=== PATIENT | female | born 1995 | race Caucasian/White ===

== ENCOUNTER 2025-03-01 17:39 | Outpatient (REF) | payer OTHER, MEDICAID, SELFPAY ==
--- OUTSIDE RECORDS SUMMARY | 2025-03-01 15:00 | XMS_ITS | Encounter Summary ---
Author Organization [employer] Address [address] [facility] [address] [place] [address] Care Team Providers Care Health Outreach Worker Name Role Phone Unavailable Primary Care Provider Unavailabl e Reason for Referral * Imaging (Urgent) - Authorized Specialty Diagnoses / Procedures Referred By Contac t Referred To Contact Radiology Diagnoses Generalized abdominal pain Procedures US Abdomen Complete Padmini Gonzalez DO [address] [place] [address] Phone: tel: fax: [address] Phone: tel: fax: Referral ID Status Reason Start Date Expiration Date V isits Requested Visits Authorized [id number] Authorized 03/01/2025 03/01/2026 1 1 * Consultation (Urgent) - Pending Review Specialty Diagnoses / Procedures Referred By Contac t Referred To Contact Obstetrics and Gynecology Diagnoses High risk human papillomavirus (HPV) DNA test positive Padmini Gonzalez DO [address] [place] [address] Phone: tel: fax: Referral ID Status Reason Start Date Expiration Date Visits Requested Visits Authorized [id number] Pending Review Specialty Services Required 03/01/2026 1 1 * Imaging (Routine) - Authorized Specialty Diagnoses / Procedures Referred By Contac t Referred To Contact Radiology Diagnoses Vaginal discharge Procedures US Pelvis Transvaginal Padmini Gonzalez DO [address] [place] [address] Phone: tel: fax: [address] Phone: tel: fax: Referral ID Status Reason Start Date Expiration Date V isits Requested Visits Authorized [id number] Authorized 03/01/2025 03/01/2026 1 1 * Imaging (Routine) - Authorized Specialty Diagnoses / Procedures Referred By Contac t Referred To Contact Radiology Diagnoses Vaginal discharge Procedures Us Pelvis complete Padmini Gonzalez DO [address] [place] [address] Phone: tel: fax: [address] Phone: tel: fax: Referral ID Status Reason Start Date Expiration Date V isits Requested Visits Authorized [id number] Authorized 03/01/2025 03/01/2026 1 1 Encounter Details Date Type Department Care Team (Latest Contact Info) Description 03/01/2025 3:00 PM EDT Office Visit [facility] [address] [place] [phone] Padmini Gonzalez DO [address] [place] [phone] Generalized abdominal pain (Primary Dx); Constipation, unspecified constipation type; Heartburn; Acute intractable headache, unspecified headache type; Dyspareunia, female; Vaginal discharge; Urinary frequency; High risk human papillomavirus (HPV) DNA test positive Social History Tobacco Use Types Packs/Day Years Used Date Smoking Tobacco: Never Passive Smoke Exposure: Never Smokeless Tobacco: Never Tobacco Cessation:Counseling Given: Not Answered Comments Unknown Sex and Gender Information Value Date Recorded Sex Assigned at Female 03/01/2025 2:47 PM EDT Legal Sex Female 2:40 PM EDT Gender Identity Female 03/01/2025 2:47 PM EDT Sexual Orientation Straight 03/01/2025 2: 47 PM EDT documented as of this encounter Last Filed Vital Signs Vital Sign Reading Time Taken Comments Blood Pressure 119/67 03/01/2025 3:15 PM EDT Pulse 74 03/01/2025 3:15 PM EDT Temperature 36.9 C (98.5 F) 03/01/2025 3:15 PM EDT Respiratory Rate 16 03/01/2025 3:15 PM EDT Oxygen Saturation 100% 03/01/2025 3:15 PM EDT Inhaled Oxygen Concentration - - Weight 56.9 kg (125 lb 8 oz) 03/01/2025 3:15 PM EDT Height 162.5 cm (5' 3.98 ) 03/01/2025 3:15 PM ED T Body Mass Index 21.56 03/01/2025 3:15 PM EDT documented in this encounter Progress Notes * Padmini Gonzalez, DO - 03/01/2025 3:00 PM EDT SUBJECTIVE Chantelle Newton is a 29 y.o. female who presents for New Pt [place] Visit. She has not had a PCP in 4 years since she moved to [place]. She presents to [place] today as a New Pt c/o abd pain and NIELSEN. She says that she feels bad. She has been having NIELSEN x 5 days. She has constant, L sided pounding, pressure-like pain. She denies any N/V or vision changes. She does have significant photophobia and noises bother her. She has tried OTC migraine meds with no improvement. She has never been dx'd with migraines. She also has diffuse abdominal pain which has been going on for longer than her headache . She denies any N/V or diarrhea. She does suffer from constipation and heartburn. She has not tried any OTC meds. She reports urinary frequency, dysuria, urgency for ~ 1 mos. She denies any hematuria. She reports white vaginal discharge and itching for ~ 1 mos as well. She denies any odor. No vaginal pain. She does experience dyspareunia. She denies any fevers, cough or URI symptoms. She was seen at [facility] a couple of weeks ago and had negative STI testing and pap with abnormal cells and positive HPV Aptima and was advised to have colposcopy but has not been scheduled yet. She denies any tobacco, alcohol or drug use. History provided by: Patient language interpreter used: No Review of Systems Constitutional: Negative for activity change, appetite change, chills, fever and unexpected weight change. HENT: Positive for postnasal drip. Eyes: Positive for photophobia. Respiratory: Negative for cough and shortness of breath. Cardiovascular: Negative for chest pain, palpitations and leg swelling. Gastrointestinal: Positive for abdominal pain, constipation and nausea. Negative for diarrhea and vomiting. Genitourinary: Positive for decreased urine volume, difficulty urinating, dyspareunia, dysuria, frequency, pelvic pain and vaginal discharge. Negative for hematuria. Neurological: Positive for headaches. Negative for weakness. Patient Active Problem List Diagnosis Chronic headaches Chronic constipation Chronic gastroesophageal reflux disease No Known Allergies OBJECTIVE Visit Vitals BP 119/67 (BP Location: Left arm, Patient Position: Sitting, BP Cuff Size: Adult) Pulse 74 Temp 98.5 ??F (36.9 ??C) (Oral) Resp 16 Ht 5' 3.98 (1.625 m) Wt 125 lb 8 oz (56.9 kg) LMP 02/07/2025 (Exact Date) SpO2 100% BMI 21.56 kg/m?? Smoking Status Never BSA 1.6 m?? Physical Exam Constitutional: General: She is not in acute distress. Appearance: Normal appearance. HENT: Right Ear: Tympanic membrane, ear canal and external ear normal. Left Ear: Tympanic membrane, ear canal and external ear normal. Mouth/Throat: Pharynx: Oropharynx is clear. Eyes: Extraocular Movements: Extraocular movements intact. Conjunctiva/sclera: Conjunctivae normal. Pupils: Pupils are equal, round, and reactive to light. Cardiovascular: Rate and Rhythm: Normal rate and regular rhythm. Heart sounds: Normal heart sounds. No murmur heard. Pulmonary: Effort: Pulmonary effort is normal. Breath sounds: Normal breath sounds. No wheezing or rhonchi. Abdominal: General: Bowel sounds are normal. Palpations: Abdomen is soft. Tenderness: There is abdominal tenderness in the right upper quadrant. There is no right CVA tenderness, left CVA tenderness, guarding or rebound. Musculoskeletal: Cervical back: Neck supple. No tenderness. Lymphadenopathy: Cervical: No cervical adenopathy. Neurological: General: No focal deficit present. Mental Status: She is alert and oriented to person, place, and time. Cranial Nerves: No cranial nerve deficit. Motor: No weakness. Gait: Gait normal. Psychiatric: Mood and Affect: Mood normal. Office Visit on 03/01/2025 Component Date Value Ref Range Status Influenza B 03/01/2025 Negative Negative, Indeterminate Final QC Media Lot # 03/01/2025 [id number] Final Lot# Expiration Date 03/01/2025 2,212,027 Final Rapid Strep A Screen 03/01/2025 Negative Negative, None Detected Final QC Media Lot # 03/01/2025 [id number] Final Lot# Expiration Date 03/01/2025 2,212,027 Final Influenza A 03/01/2025 Negative Negative, Indeterminate Final QC Media Lot # 03/01/2025 [id number] Final Lot# Expiration Date 03/01/2025 2,,027 Final Coronavirus Antigen PCR 03/01/2025 Negative Negative, Indeterminate, None Detected, Invalid, Specimen unsatisfactory for evaluation, Weakly Positive, 2+ Final QC Media Lot # 03/01/2025 [id number] Final Lot# Expiration Date 03/01/2025 10,282,026 Final Color, UA 03/01/2025 Light Yellow Final Clarity, UA 03/01/2025 Clear Final Glucose, UA 03/01/2025 Negative Final Bilirubin, UA 03/01/2025 Negative Final Ketones, UA 03/01/2025 Negative Final Spec Grav, UA 03/01/2025 1.020 Final Blood, UA 03/01/2025 Negative Negative, None Detected Final pH, UA 03/01/2025 7.0 Final Protein, UA 03/01/2025 Negative Final Urobilinogen, UA 03/01/2025 0.2 Final Leukocytes, UA 03/01/2025 Negative Negative, Rare, Trace Final Nitrite, UA 03/01/2025 Negative Negative, None Detected Final Appearance, UA 03/01/2025 clear Final QC Media Lot # 03/01/2025 [id number] Final Lot# Expiration Date 03/01/2025 6,302,026 Final Preg Test, Ur 03/01/2025 Negative Negative, Indeterminate, None Detected, Invalid, Specimen unsatisfactory for evaluation, Weakly Positive, 2+ Final QC Media Lot # 03/01/2025 [id number] Final Lot# Expiration Date 03/01/2025 1,312,027 Final Assessment/Plan Diagnoses and all orders for this visit: Generalized abdominal pain Constipation, unspecified constipation type Heartburn With RUQ tenderness on exam, likely multifactorial -provided reassurance -check basic labs -referred for abd [place] -encouraged increase fruits, vegetables, fiber, and water intake -start colace and fiber supplementation BID -trial miralax prn -start omeprazole daily -advised contact HHC if no improvement Acute intractable headache, unspecified headache type Persistent sx x 5 days, probable migraine -treated with toradol injection to break current NIELSEN -trial imitrex prn acute migraine -advised keep NIELSEN log and bring to new pt visit for review -advised rtc or go to ED if no improvement Dyspareunia, female -referred for pelvic US -sign record request for pap results -advised rtc if symptoms change or worsen Vaginal discharge Probable milan, recent testing negative -check BV panel and GC/CT -advised pt will treat pending results Urinary frequency With dysuria, probable UTI -treat empirically with bactrim -send Ucx for sensitivities -advised contact HHC if sx do not resolve High risk human papillomavirus (HPV) DNA test positive -sign record request for pap results as above -referred to TELEHEALTH NURSE EDUCATOR for colposcopy as recommended --Follow-up with new PCP as scheduled or sooner prn-- Current Outpatient Medications: docusate sodium (Colace) 100 MG capsule, Take 1 capsule (100 mg) by mouth 2 times daily., Disp: 180capsule, Rfl: 1 omeprazole OTC (PriLOSEC OTC) 20 MG EC tablet, Take 1 tablet (20 mg) by mouth before breakfast. Do not crush, chew, or split., Disp: 90 tablet, Rfl: 1 polycarbophil (Fibercon) 625 MG tablet, Take 1 tablet (625 mg) by mouth 2 times daily., Disp: 180 tablet, Rfl: 1 polyethylene glycol, PEG, 3350 (MiraLax) 17 GM/SCOOP powder, Take 17 g by mouth if needed each day (constipation) for up to 3 days., Disp: 527 g, Rfl: 2 sulfamethoxazole-trimethoprim (Bactrim DS) 800-160 MG tablet, Take 1 tablet by mouth 2 times daily for 3 days., Disp: 6 tablet, Rfl: 0 SUMAtriptan (Imitrex) 25 MG tablet, Take 1 tablet (25 mg) by mouth 1 (one) time if needed for migraine for up to 1 dose. May repeat dose once in 2 hours if no relief. Do not exceed 2 doses in 24 hours., Disp: 9 tablet, Rfl: 1 No current facility-administered medications for this visit. Scribe Attestation: Javier Manning, am serving as a scribe to document services personally performed by Padmini Temple, based on the patient's response to questions by provider and provider's statements to me. 03/01/25 4:45 PM Physicians Attestation: Padmini Manning DO, have reviewed the information by the scribe, Javier Toledo, for accuracy and agree with its content. documented in this encounter Plan of Treatment Scheduled Orders Name Type Priority Associated Diagnoses Orde r Schedule T4, Free Lab Routine Generalized abdominal pain Acute intractable headache, unspecified headache type Vaginal discharge Expected: 03/01/2025 (Approximate), Expires: 03/01/2026 Lipid Panel, Standard Lab Routine Generalized abdominal pain Acute intractable headache, unspecified headache type Vaginal discharge Expected: 03/01/2025 (Approximate), Expires: 03/01/2026 TSH Lab Routine Generalized abdominal pain Acute intractable headache, unspecified headache type Vaginal discharge Expected: 03/01/2025 (Approximate), Expires: 03/01/2026 Vitamin D, 25-Hydroxy, Total, Immunoassay Lab Routine Generalized abdominal pain Acute intractable headache, unspecified headache type Vaginal discharge Expected: 03/01/2025 (Approximate), Expires: 03/01/2026 Hepatic Function Panel Lab Routine Generalized abdominal pain Acute intractable headache, unspecified headache type Vaginal discharge Expected: 03/01/2025 (Approximate), Expires: 03/01/2026 Hemoglobin A1c Lab Routine Generalized abdominal pain Acute intractable headache, unspecified headache type Vaginal discharge Expected: 03/01/2025 (Approximate), Expires: 03/01/2026 CBC Lab Routine Generalized abdominal pain Acute intractable headache, unspecified headache type Vaginal discharge Expected: 03/01/2025, Expires: 03/01/2026 Basic Metabolic Panel Lab Routine Generalized abdominal pain Acute intractable headache, unspecified headache type Vaginal discharge Expected: 03/01/2025 (Approximate), Expires: 03/01/2026 Hepatitis B surface antigen, EIA Lab Routine Generalized abdominal pain Acute intractable headache, unspecified headache type Vaginal discharge Expected: 03/01/2025 (Approximate), Expires: 03/01/2026 Chlamydia/N. Gonorrhoeae RNA, TMA, Urogenitial Microbiology Routine Generalized abdominal pain Acute intractable headache, unspecified headache type Vaginal discharge Ordered: 03/01/2025 HIV-1/2 Antigen and Antibodies, Fourth Generation, with Reflexes Lab Routine Generalized abdominal pain Acute intractable headache, unspecified headache type Vaginal discharge Expected: 03/01/2025 (Approximate), Expires: 03/01/2026 Hepatitis C Antibody with Reflex to HCV, RNA, Quantitative, Real-Time PCR Lab Routine Generalized abdominal pain Acute intractable headache, unspecified headache type Vaginal discharge Expected: 03/01/2025, Expires: 03/01/2026 RPR (Monitor) with Reflex to Titer Lab Routine Generalized abdominal pain Acute intractable headache, unspecified headache type Vaginal discharge Expected: 03/01/2025, Expires: 03/01/2026 Hepatitis B Surface Antibody, Qualitative Lab Routine Generalized abdominal pain Acute intractable headache, unspecified headache type Vaginal discharge Expected: 03/01/2025 (Approximate), Expires: 03/01/2026 Hepatitis A Antibody, Total Lab Routine Generalized abdominal pain Acute intractable headache, unspecified headache type Vaginal discharge Expected: 03/01/2025 (Approximate), Expires: 03/01/2026 Hepatitis B Core Antibody, Total Lab Routine Generalized abdominal pain Acute intractable headache, unspecified headache type Vaginal discharge Expected: 03/01/2025 (Approximate), Expires: 03/01/2026 T-SPOT .TB Lab Routine Generalized abdominal pain Acute intractable headache, unspecified headache type Vaginal discharge Expected: 03/01/2025 (Approximate), Expires: 03/01/2026 Us Pelvis complete Imaging Routine Vaginal discharge Expected: 03/01/2025, Expires: 03/01/2026 US Pelvis Transvaginal Imaging Routine Vaginal discharge Expected: 03/01/2025, Expires: 03/01/2026 Bacterial Vaginosis Microbiology Routine Vaginal discharge Ordered: 03/01/2025 Chlamydia/N. Gonorrhoeae RNA, TMA, Vaginal Microbiology Routine Vaginal discharge Ordered: 03/01/2025 US Abdomen Complete Imaging Urgent Generalized abdominal pain Expected: 03/01/2025, Expires: 03/01/2026 Amylase Lab Routine Generalized abdominal pain Expected: 03/01/2025 (Approximate), Expires: 03/01/2026 Lipase Lab Routine Generalized abdominal pain Expected: 03/01/2025, Expires: 03/01/2026 Culture, Urine, Routine Microbiology Routine Urinary frequency Ordered: 03/01/2025 Scheduled Referrals Name Type Priority Associated Diagnoses Orde r Schedule Referral to Obstetrics / Gynecology Outpatient Referral Urgent High risk human papillomavirus (HPV) DNA test positive Expected: 03/01/2025 (Approximate), Expires: 03/01/2026 documented as of this encounter Procedures Procedure Name Priority Date/Time Associated Diagnosis Comments POCT URINALYSIS DIPSTICK Routine 03/01/2025 4:13 PM EDT Generalized abdominal pain POCT , URINE Routine 03/01/2025 4:12 PM EDT Generalized abdominal pain POCT COVID-19 AG RENO ID NOW Routine 03/01/2025 3:30 PM EDT Generalized abdominal pain POCT INFLUENZA B (ID NOW RAPID MOLECULAR) Routine 03/01/2025 3:29 PM EDT Generalized abdominal pain POCT INFLUENZA A (ID NOW RAPID MOLECULAR) Routine 03/01/2025 3:29 PM EDT Generalized abdominal pain POC RENO ID NOW STREP A Routine 03/01/2025 3:26 PM EDT Generalized abdominal pain documented in this encounter Results * POCT Urinalysis (03/01/2025 4:13 PM EDT) Color, UA Light Yellow Clarity, UA Clear Glucose, UA Negative Bilirubin, UA Negative Ketones, UA Negative Spec Grav, UA 1.020 Blood, UA Negative Negative, None Detected pH, UA 7.0 Protein, UA Negative Urobilinogen, UA 0.2 Leukocytes, UA Negative Negative, Rare, Trace Nitrite, UA Negative Negative, None Detected Appearance, UA clear QC Media Lot # [id number] Lot# Expiration Date ,026 Urine (Urine, Random) 03/01/2025 4:13 PM EDT [employer] DO POINT OF CARE TEST ENTER/QUAN T ORDERABLES Final Result * POCT Urine (03/01/2025 4:12 PM EDT) Pathologist [facility] Preg Test, Ur Negative Negative, Indeterminate, None Detected, Invalid, Specimen unsatisfactory for evaluation, Weakly Positive, 2+ QC Media Lot # [id number] Lot# Expiration Date Urine 03/01/2025 4:12 PM EDT [facility] POINT OF CARE TEST ENTER/QUAN T ORDERABLES Final Result * POCT Rapid Covid-19 RENO ID NOW (03/01/2025 3:30 PM EDT) Pathologist [facility] Coronavirus Antigen PCR Negative Negative, Indeterminate, None Detected, Invalid, Specimen unsatisfactory for evaluation, Weakly Positive, 2+ QC Media Lot # [id number] Lot# Expiration Date , Swab 03/01/2025 3:30 PM EDT [employer] POINT OF CARE TEST ENTER/QUAN T ORDERABLES Final Result * POCT Rapid Influenza A RENO ID NOW (03/01/2025 3:29 PM EDT) Pathologist [facility] Influenza A Negative Negative, Indeterminate [facility] QC Media Lot # [id number] [facility] Lot# Expiration Date [facility] Swab 03/01/2025 3:29 PM EDT Padmini Barbosayoan DO POINT OF CARE TEST ENTER/QUAN T ORDERABLES Final Result Performing Organization Address [facility] Co de Phone Number [facility] [address] [place] [phone] * POCT Rapid Influenza B RENO ID NOW (03/01/2025 3:29 PM EDT) Pathologist [facility] Influenza B Negative Negative, Indeterminate [facility] QC Media Lot # [id number] [facility] Lot# Expiration Date [facility] Swab 03/01/2025 3:29 PM EDT Padmini Gonzalez POINT OF CARE TEST ENTER/QUAN T ORDERABLES Final Result Performing Organization Address [facility] de Phone Number [facility] [address] [place] [phone] * POCT Rapid Strep A RENO ID NOW (03/01/2025 3:26 PM EDT) [facility] Rapid Strep A Screen Negative Negative, None Detected QC Media Lot # [id number] Lot# Expiration Date Swab 03/01/2025 3:26 PM EDT Padmini Barbosazachlindsay POINT OF CARE TEST ENTER/QUAN T ORDERABLES Final Result documented in this encounter Visit Diagnoses Diagnosis Generalized abdominal pain- Primary Abdominal pain, generalized Constipation, unspecified constipation type Heartburn Acute intractable headache, unspecified headache type Dyspareunia, female Vaginal discharge Leukorrhea, not specified as infective Urinary frequency High risk human papillomavirus (HPV) DNA test positive documented in this encounter Administered Medications Inactive Administered Medications - up to 3 most recent administrations Medication Order MAR Action Action Date Dose Rate Site ketorolac (Toradol) injection 30 mg 30 mg, Intramuscular, Once, On Kita 03/01/25 at 1600, For 1 doseIndications:Acute intractable headache, unspecified headache type Given 03/01/2025 4:00 PM EDT 30 mg Right Deltoid documented in this encounter
--- OUTSIDE RECORDS SUMMARY | 2025-03-01 19:40 | XMS_ITS | Clinical Summary ---
Author Organization [employer] Address [address] [place] [address] [address] [place] [address] Care Team Providers Care Family Consumer Science Teacher Name Role Phone Unavailable Primary Care Provider Unavailabl e Allergies No known active allergies Medications sulfamethoxazol e-trimethoprim (Bactrim DS) 800-160 MG tablet Take 1 tablet by mouth 2 times daily for 3 days. 6 tablet 03/01/2025 03/04/20 Active docusate sodium (Colace) 100 MG capsule Take 1 capsule (100 mg) by mouth 2 times daily. 180 capsule 1 03/01/2025 03/01/20 Active polycarbophil (Fibercon) 625 MG tablet Take 1 tablet (625 mg) by mouth 2 times daily. 180 tablet 1 03/01/2025 03/01/20 Active polyethylene glycol, PEG, 3350 (MiraLax) 17 GM/SCOOP powder Take 17 g by mouth if needed each day (constipation ) for up to 3 days. 527 g 2 03/01/2025 03/04/20 Active omeprazole OTC (PriLOSEC OTC) 20 MG EC tablet Take 1 tablet (20 mg) by mouth before breakfast. Do not crush, chew, or split. 90 tablet 1 03/01/2025 03/01/20 26 Active SUMAtriptan (Imitrex) 25 MG tablet Take 1 tablet (25 mg) by mouth 1 (one) time if needed for migraine for up to 1 dose. May repeat dose once in 2 hours if no relief. Do not exceed 2 doses in 24 hours. 9 tablet 1 03/01/2025 Active Hospital, Clinic, or Other Facility Administered Medication Ordered Dose Route Frequency Start Date End Date Status ketorolac (Toradol) injection 30 mgIndications:Acute intractable headache, unspecified headache type 30 mg IM Once 03/01/2025 03/01/2025 Ended Active Problems Problem Noted Date Diagnosed Date Chronic headaches 03/01/2025 Chronic constipation 03/01/2025 Chronic gastroesophageal reflux disease 03/01/20 25 Encounters Date Type Department Care Team Description 03/01/2025 3:00 PM EDT Office Visit [facility] [address] [address] Padmini Gonzalez DO Generalized abdominal pain (Primary Dx); Constipation, unspecified constipation type; Heartburn; Acute intractable headache, unspecified headache type; Dyspareunia, female; Vaginal discharge; Urinary frequency; High risk human papillomavirus (HPV) DNA test positive 03/01/2025 Travel from Last 3 Months Social History Tobacco Use Types Packs/Day Years Used Date Smoking Tobacco: Never Passive Smoke Exposure: Never Smokeless Tobacco: Never Tobacco Cessation:Counseling Given: Not Answered Comments Unknown Sex and Gender Information Value Date Recorded Sex Assigned at Female 03/01/2025 2:47 PM EDT Legal Sex Female 2:40 PM EDT Gender Identity Female 03/01/2025 2:47 PM EDT Sexual Orientation Straight 03/01/2025 2: 47 PM EDT Last Filed Vital Signs Vital Sign Reading [...] Mass Index 21.56 03/01/2025 3:15 PM EDT Plan of Treatment Health Maintenance Due Date Last Done Comments Depression Screening 1993 HIV Screening 1993 SDOH Screening 1993 Disability Screening 1993 Alcohol/Substance Use Screening 2005 Family Planning (PISQ) 2008 HPV Vaccines (1 - 3-dose series) 2008 Hepatitis C Screening 11/02/2011 DTaP/Tdap/Td Vaccines (1 - Tdap) 2012 Hepatitis B Vaccines (1 of 3 - 19+ 3-dose series) 2012 Pap Smear 2014 Cervical Cancer Screening 11/02/2023 HPV/Cotest 11/02/2023 COVID-19 Vaccine (1 - 2023-2 5 season) 2025 Influenza Vaccine (#1) 2025 Tobacco Screening 03/01/2026 03/01/2025 Zoster Vaccines (1 of 2) 11/02/2043 RSV Patients and Pa tients Aged 60 years or older (1 - 1-dose 75+ series) 2068 HIB Vaccines Aged Out No longer eligi ble based on patient's age to complete this topic Hepatitis A Vaccines Aged Out No long er eligible based on patient's age to complete this topic IPV Vaccines Aged Out No longer eligi ble based on patient's age to complete this topic Meningococcal B Vaccine Aged Out No l onger eligible based on patient's age to complete this topic Meningococcal Vaccine Aged Out No romina walt eligible based on patient's age to complete this topic Pneumococcal Vaccine: Pediat rics (0 to 5 Years) and At-Risk Patients (6 to 49) Years Aged Out No longer eligi ble based on patient's age to complete this topic RSV under 20 months Aged Out No longe r eligible based on patient's age to complete this topic Rotavirus Vaccines Aged Out No longer eligible based on patient's age to complete this topic Procedures Procedure Name Priority Date/Time Associated Diagnosis [...] 03/01/2025 3:26 PM EDT Generalized abdominal pain from Last 3 Months Results * POCT Urinalysis (03/01/2025 4:13 PM [...] Media Lot # [id number] Lot# Expiration Date 302,026 Urine (Urine, Random) 03/01/2025 4:13 PM EDT [facility] POINT OF CARE TEST ENTER/QUAN T ORDERABLES Final Result * POCT Urine (03/01/2025 4:12 PM EDT) Preg Test, Ur Negative Negative, Indeterminate, None Detected, Invalid, Specimen unsatisfactory for evaluation, Weakly Positive, 2+ QC Media Lot # [id number] Lot# Expiration Date ,312,027 Urine 03/01/2025 4:12 PM EDT Padmini GeoVarioyoan DO POINT OF CARE TEST ENTER/QUAN T ORDERABLES Final Result * POCT Rapid Covid-19 R[place] ID NOW (03/01/2025 3:30 PM EDT) Coronavirus Antigen PCR Negative Negative, Indeterminate, None Detected, Invalid, Specimen unsatisfactory for evaluation, Weakly Positive, 2+ QC Media Lot # [id number] Lot# Expiration Date ,026 Swab 03/01/2025 3:30 PM EDT Padmini Gonzalez DO POINT OF CARE TEST ENTER/QAUN T ORDERABLES Final Result * POCT Rapid Influenza B RENO ID NOW (03/01/2025 3:29 PM EDT) Influenza B Negative Negative, Indeterminate [facility] QC Media Lot # [id number] [facility] Lot# Expiration Date [facility] Swab 03/01/2025 3:29 PM EDT Padmini Gonzalez DO POINT OF CARE TEST ENTER/QUAN T ORDERABLES Final Result Performing Organization Address [facility] Co de Phone Number [facility] [address] [place] [phone] * POCT Rapid Influenza A RENO ID NOW (03/01/2025 3:29 PM EDT) Influenza A Negative Negative, Indeterminate [facility] QC Media Lot # [id number] [facility] Lot# Expiration Date [facility] Swab 03/01/2025 3:29 PM EDT Padmini Gonzalez DO POINT OF CARE TEST ENTER/QUAN T ORDERABLES Final Result Performing Organization Address [facility]/ZIP Co de Phone Number [facility] [address] [place] [phone] * POCT Rapid Strep A R[place] ID NOW (03/01/2025 3:26 PM EDT) Pathologist [facility] Rapid Strep A Screen Negative Negative, None Detected QC Media Lot # [id number] Lot# Expiration Date Swab 03/01/2025 3:26 PM EDT Padmini Gonzalez DO POINT OF CARE TEST ENTER/QUAN T ORDERABLES Final Result from Last 3 Months Insurance [facility] LIMITED HSN FULL
--- OUTSIDE RECORDS SUMMARY | 2025-03-01 19:40 | XMS_ITS | Encounter Summary ---
Author Organization [employer] Address [address] [place] [address] [address] [place] [address] Care Team Providers Care Biometric Technician Name Role Phone Unavailable Primary Care Provider Unavailabl e Encounter Details Date Type Department Care Team (Latest Contact Info) Description 03/01/2025 Travel Social History Tobacco Use Types Packs/Day Years Used Date Smoking Tobacco: Never Passive Smoke Exposure: Never Smokeless Tobacco: Never Comments Unknown Sex and Gender Information Value Date Recorded Sex Assigned at Female 03/01/2025 2:47 PM EDT Legal Sex Female 2:40 PM EDT Gender Identity Female 03/01/2025 2:47 PM EDT Sexual Orientation Straight 03/01/2025 2: 47 PM EDT documented as of this encounter Plan of Treatment Not on file documented as of this encounter Visit Diagnoses Not on filedocumented in this encounter
[2025-03-02 05:45] LABS: Bacterial Vaginosis PCR NEGATIVE (Negative); Candida Group PCR NOT DETECTED (Not Detect); Candida glab krusei PCR NOT DETECTED (Not Detect); Trichomonas vaginalis PCR NOT DETECTED (Not Detect)
[2025-03-02 06:16] LABS: CT PCR NOT DETECTED (Not Detect.); NG PCR NOT DETECTED (Not Detect.)
== END 2025-03-01 17:40 | disposition home or self-care (01) ==
LOC: HO.HHCLNP 17:39
PROVIDERS: Visit Provider Family Medicine
DX: N89.8 Other specified noninflammatory disorders of vagina (principal); R35.0 Frequency of micturition; Z20.2 Contact with and (suspected) exposure to infections with a predominantly sexual mode of transmission
CPT/HCPCS: 81515; 87086; 87491; 87591

== ENCOUNTER 2025-04-26 15:48 | Outpatient (REF) | payer MEDICAID, OTHER, SELFPAY ==
--- NOTE | ~2025-04-26 | US_ITS ---
EXAMINATION: US PELVIS TRANSABDOMINAL AND TRANSVAGINAL HISTORY: painful intercourse COMPARISON: There are no prior studies available for comparison. TECHNIQUE: Transabdominal and endovaginal real-time 2D person-scale ultrasound was performed. FINDINGS: LMP:Unknown Uterus: The uterus is retroverted, measuring 7.4 x 3.7 x 5.3 cm. Myometrium has a normal echotexture. No focal uterine lesions. Endometrium: The endometrial stripe measures 9 mm in thickness. Right ovary: The right ovary measures 3 x 2.7 x 2 cm. Volume 8.4 mL The right ovary is normal in size and echotexture. Normal vascular flow. Small nonspecific free fluid adjacent to the right ovary. Left ovary: The left ovary is not visualized. Pelvic fluid: Small amount of free fluid There is prominence of the vasculature in the adnexal region, question pelvic congestion. US/US pelvic and transvaginal IMPRESSION: 1. The left ovary is not visualized. 2. Right ovary appears unremarkable. Nonspecific small free fluid adjacent to the ovary. 3. Prominence of the pelvic vasculature, question pelvic congestion. Electronically signed by: Kvng Joseph MD 04/26/2025 04:59 PM [facility]
--- OUTSIDE RECORDS SUMMARY | 2025-04-26 19:33 | XMS_ITS | Clinical Summary ---
Author Organization [employer] Address [address] [facility] [address] [place] [address] Care Team Providers Care Interventional Tech Name Role Phone Padmini Gonzalez DO Primary Care Provider + [phone] Allergies No known active allergies Medications docusate sodium (Colace) 100 MG capsule Take 1 capsule (100 mg) by mouth 2 times daily. 180 capsule 1 03/01/2025 03/01/20 Active polycarbophil (Fibercon) 625 MG tablet Take 1 tablet (625 mg) by mouth 2 times daily. 180 tablet 1 03/01/2025 03/01/20 Active omeprazole OTC (PriLOSEC OTC) 20 MG EC tablet Take 1 tablet (20 mg) by mouth before breakfast. Do not crush, chew, or split. 90 tablet 1 03/01/2025 03/01/20 Active SUMAtriptan (Imitrex) 25 MG tablet Take 1 tablet (25 mg) by mouth 1 (one) time if needed for migraine for up to 1 dose. May repeat dose once in 2 hours if no relief. Do not exceed 2 doses in 24 hours. 9 tablet 1 03/01/2025 Active Active Problems Problem Noted Date Diagnosed Date Chronic headaches 03/01/2025 Chronic constipation 03/01/2025 Chronic gastroesophageal reflux disease 03/01/20 Encounters Date Type Department Care Team Description 03/01/2025 3:00 PM EDT Office Visit [facility] [address] [place] [phone] Padmini Gonzalez DO Generalized abdominal pain (Primary [...] 11/02/2023 HPV/Cotest 11/02/2023 COVID-19 Vaccine (1 - 2024-2 6 season) 2025 Influenza Vaccine (#1) 2025 Tobacco [...] Procedure Name Priority Date/Time Associated Diagnosis Comments US PELVIS TRANSVAGINAL Routine 04/26/2025 3:54 PM EST Vaginal discharge POCT URINALYSIS DIPSTICK Routine 03/01/2025 4:13 PM EDT Generalized abdominal pain POCT , URINE Routine 03/01/2025 4:12 PM EDT Generalized abdominal pain CULTURE, URINE, ROUTINE Routine 03/01/2025 4:05 PM EDT Urinary frequency BACTERIAL VAGINOSIS PANEL Routine 03/01/2025 4:05 PM EDT Vaginal discharge CHLAMYDIA/N. GONORRHOEAE RNA, TMA, UROGENITAL Routine 03/01/2025 3:55 PM EDT Vaginal discharge POCT COVID-19 AG RENO ID NOW Routine [...] pain from Last 3 Months Results * US Pelvis Transvaginal (04/26/2025 3:54 PM EST) Anatomical Region Laterality Modality Pelvis Ultrasound 04/26/2025 3:54 PM EST Narrative 04/26/2025 5:02 PM EST [facility] [address] [place] [address] [place] [address] Ultrasound Report Signed Patient: Chantelle Lovelace MR#: [id number] : 1995 Acct:[id number] Age/Sex: 29 / F ADM Date: 04/26/25 Loc: HO.HMGCX Attending Dr: Padmini Gonzalez DO Ordering Physician: Padmini Gonzalez DO Date of Service: 04/26/25 Procedure(s): US pelvic and transvaginal Accession Number(s): [id number] cc: [facility]; Padmini Gonzalez DO Reason for Exam: painful intercourse EXAMINATION: US PELVIS TRANSABDOMINAL AND TRANSVAGINAL HISTORY: painful intercourse COMPARISON: There are no prior studies available for comparison. TECHNIQUE: Transabdominal and endovaginal real-time 2D person-scale ultrasound was performed. FINDINGS: LMP:Unknown Uterus: The uterus is retroverted, measuring 7.4 x 3.7 x 5.3 cm. Myometrium has a normal echotexture. No focal uterine lesions. Endometrium: The endometrial stripe measures 9 mm in thickness. Right ovary: The right ovary measures 3 x 2.7 x 2 cm. Volume 8.4 mL The right ovary is normal in size and echotexture. Normal vascular flow. Small nonspecific free fluid adjacent to the right ovary. Left ovary: The left ovary is not visualized. Pelvic fluid: Small amount of free fluid There is prominence of the vasculature in the adnexal region, question pelvic congestion. US/US pelvic and transvaginal IMPRESSION: 1. The left ovary is not visualized. 2. Right ovary appears unremarkable. Nonspecific small free fluid adjacent to the ovary. 3. Prominence of the pelvic vasculature, question pelvic congestion. Electronically signed by: Kvng Joseph MD 04/26/2025 04:59 PM EST Dictated By: Kvng Joseph MD Signed By: <Electronically signed by Kvng Joseph MD in OV> 04/26/25 1659 DD/ 1554 TD/TT: 04/26/25 1612 Telephone Operator: VASHTI Procedure Note Donotuseinterpreter, Image - 04/26/2025 [facility] Adult Primary Care [facility] [place] [address] Ultrasound Report Signed Patient: Shwetha Lovelace#: [id number] : 1995Acct:[id number] Age/Sex: M Date: 04/26/25 Loc: HO.HMGCX Attending Dr: Padmini Gonzalez DO Ordering Physician: Padmini Gonzalez DO Date of Service: 04/26/25 Procedure(s): US pelvic and transvaginal Accession Number(s): [id number] cc: [facility]; Padmini Gonzalez DO Reason for Exam: painful intercourse EXAMINATION: US PELVIS TRANSABDOMINAL AND TRANSVAGINAL HISTORY: painful intercourse COMPARISON: There are no prior studies available for comparison. TECHNIQUE: Transabdominal and endovaginal real-time 2D person-scale ultrasound was performed. FINDINGS: LMP:Unknown Uterus: The uterus is retroverted, measuring 7.4 x 3.7 x 5.3 cm. Myometrium has a normal echotexture. No focal uterine lesions. Endometrium: The endometrial stripe measures 9 mm in thickness. Right ovary: The right ovary measures 3 x 2.7 x 2 cm. Volume 8.4 mL The right ovary is normal in size and echotexture. Normal vascular flow. Small nonspecific free fluid adjacent to the right ovary. Left ovary: The left ovary is not visualized. Pelvic fluid: Small amount of free fluid There is prominence of the vasculature in the adnexal region, question pelvic congestion. US/US pelvic and transvaginal IMPRESSION: 1. The left ovary is not visualized. 2. Right ovary appears unremarkable. Nonspecific small free fluid adjacent to the ovary. 3. Prominence of the pelvic vasculature, question pelvic congestion. Electronically signed by: Kvng Joseph MD 04/26/2025 04:59 PM [facility] Dictated By: Kvng Joseph MD Signed By: <Electronically signed by Kvng Joseph MD in OV> 04/26/25 1659 DD/ 1554 TD/TT: 04/26/25 1612 Telephone Operator: VASHTI Padmini Gonzalez DO IMG US PROCEDURES Final Resu lt * POCT Urinalysis (03/01/2025 4:13 PM EDT) [...] Media Lot # [id number] Lot# Expiration Date 6,026 Urine (Urine, Random) 03/01/2025 4:13 PM EDT Padmini Gonzalez DO POINT OF CARE TEST ENTER/QUAN T ORDERABLES Final Result * POCT Urine (03/01/2025 4:12 PM EDT) Preg Test, Ur Negative Negative, Indeterminate, None Detected, Invalid, Specimen unsatisfactory for evaluation, Weakly Positive, 2+ QC Media Lot # [id number] Lot# Expiration Date 1,[id number] Urine 03/01/2025 4:12 PM EDT Padmini Gonzalez DO POINT OF CARE TEST ENTER/QUAN T ORDERABLES Final Result * Bacterial Vaginosis (03/01/2025 4:05 PM EDT) TRICHOMONAS VAGINALIS DETECTION BY PCR NOT DETECTED Not Detect [facility] BACTERIAL VAGINOSIS DETECTION BY PCR NEGATIVE Negative [facility] Comment:The BV organism targ ets of the Xpert Xpress MVP test can becommensal in women; Xpert Xpress MVP positive results forbacterial vaginosis should be considered in conjunction withother clinical and patient information to determine thedisease status. Organisms that are not detected by the XpertXpress MVP test have also been reported to be associatedwith BV and aerobic vaginitis.The Xpert Xpress MVP test performance has not been evaluatedin patients under the age of 14. MERY GROUP DETECTION BY PCR NOT DETECTED Not Detect [facility] Mery glab krusei PCR NOT DETECTED Not Detect [facility] Swab Vaginal structure / Unknown 03/01/2025 4:05 PM EDT 03/01/2025 6:01 PM EDT Padmini Gonzalez DO LAB MICROBIOLOGY - GENERAL O RDERABLES Final Result [facility] [address] [place] [phone] * Culture, Urine, Routine (03/01/2025 4:05 PM EDT) Urine Urine specimen obtained by clean catch procedure / Unknown 03/01/2025 4:05 PM EDT 03/01/2025 6:01 PM EDT Comment:[facility] Narrative [facility] - 03/03/2025 1:20 PM EDT Lactobacillus species Quant 50,000 to 100,000 cfu/mL Susc N/A Susceptibility not routinely performed on this isolate. Specimen Source: Urine clean catch Padmini Gonzalez DO LAB MICROBIOLOGY - GENERAL O RDERABLES Final Result [facility] [address] [place] [phone] * Chlamydia/N. Gonorrhoeae RNA, TMA, Vaginal (03/01/2025 3:55 PM EDT) CT PCR NOT DETECTED Not Detect. [facility] Comment:A not detected test result does not exclude the possibilityof infection because test results can be affected byimproper specimen collection, concurrent antibiotic therapy,or the number of organisms in the specimen which may bebelow the sensitivity of the test. As with many diagnostictests, results from the Xpert CT/NG assay should beinterpreted in conjunction with other laboratory andclinical data available to the clinician.Xpert CT/NG performance has not been evaluated in patientsless than 14 years of age. The assay should not be used forthe evaluationof suspected sexual abuse or for other medico-legalindications. Additional testing is recommended in anycircumstance when false positive or false negative resultscould lead to adverse medical, social or psychologicalconsequences. NG PCR NOT DETECTED Not Detect. [facility] Comment:A not detected test result does not exclude the possibilityof infection because test results can be affected byimproper specimen collection, concurrent antibiotic therapy,or the number of organisms in the specimen which may bebelow the sensitivity of the test. As with many diagnostictests, results from the Xpert CT/NG assay should beinterpreted in conjunction with other laboratory andclinical data available to the clinician.Xpert CT/NG performance has not been evaluated in patientsless than 14 years of age. The assay should not be used forthe evaluationof suspected sexual abuse or for other medico-legalindications. Additional testing is recommended in anycircumstance when false positive or false negative resultscould lead to adverse medical, social or psychologicalconsequences. Swab (Vaginal Swab) 03/01/2025 3:55 PM EDT 03/01/2025 5:42 PM EDT Padmini Gonzalez DO LAB MICROBIOLOGY - GENERAL O RDERABLES Final Result [facility] [address] [place] [phone] * POCT Rapid Covid-19 R[place] ID NOW (03/01/2025 3:30 PM EDT) Coronavirus Antigen PCR Negative Negative, Indeterminate, None Detected, Invalid, Specimen unsatisfactory for evaluation, Weakly Positive, 2+ QC Media Lot # [id number] Lot# Expiration Date , Swab 03/01/2025 3:30 PM EDT Padmini Gonzalez DO POINT OF CARE TEST ENTER/QUAN T ORDERABLES Final Result * POCT Rapid Influenza B R[place] ID NOW (03/01/2025 3:29 PM EDT) Pathologist [facility] Influenza B Negative Negative, Indeterminate [facility] QC Media Lot # [id number] [facility] Lot# Expiration Date [facility] Swab 03/01/2025 3:29 PM EDT Padmini Gonzalez DO POINT OF CARE TEST ENTER/QUAN T ORDERABLES Final Result Performing Organization Address City/[facility]/ZIP Co de Phone Number [facility] [address] [place] [phone] * POCT Rapid Influenza A RENO ID NOW (03/01/2025 3:29 PM EDT) Influenza A Negative Negative, Indeterminate [facility] QC Media Lot # [id number] [facility] Lot# Expiration Date [facility] Swab 03/01/2025 3:29 PM EDT Padmini Gonzalez DO POINT OF CARE TEST ENTER/QUAN T ORDERABLES Final Result [facility] [address] [place] [phone] * POCT Rapid Strep A R[place] ID NOW (03/01/2025 3:26 PM EDT) Rapid Strep A Screen Negative Negative, None Detected QC Media Lot # [id number] Lot# Expiration Date ,027 Swab 03/01/2025 3:26 PM EDT Padmini Gonzalez DO POINT OF CARE TEST ENTER/QUAN T ORDERABLES Final Result from Last 3 Months Insurance [facility] Care Teams Interventional Tech Relationship Specialty Start Date End Date Padmini Gonzalez DO [address] [place] [phone] PCP - General Family Medicine 03/02/25
== END 2025-04-26 15:49 | disposition home or self-care (01) ==
LOC: HO.HMGCX 15:48
PROVIDERS: Visit Provider Family Medicine
DX: N89.8 Other specified noninflammatory disorders of vagina (principal)
CPT/HCPCS: 76830; 76856

== ENCOUNTER → 2025-04-26 15:50 | Outpatient (BNV) | payer MEDICAID, SELFPAY | PROVIDERS: Visit Provider Radiology Diagnostic Ultrasound | DX: N94.19 Other specified dyspareunia (principal) | CPT/HCPCS: 76830; 76856 ==